=== PATIENT | female | born 1955 | race Caucasian/White ===

== ENCOUNTER 2016-09-03 09:49 | Emergency (ER) | payer OTHER ==
[~2016-09-03] VITALS: Ht 152.4 cm; Wt 76.4 kg
[~2016-09-03 09:49] MED LIST: ALBU8.5H4 IH; BACL10TA PO; CIPR-198 PO; DULO30CA50 PO; HYDR-4003 PO; HYDR50TA76 PO; INDO25CA PO; METO25TA6 PO; METR500T PO; SALM50DI IH; SIMV10TA4 PO; TIOT18CA3 IH
[2016-09-03 09:53] VITALS: BP 161/92; PULSE 74; RESP 16; O2SAT 95
[2016-09-03] MEDS ORDERED: Promethazine Inj 25 MG in 0.9% Sodium Chloride 50 ML IV ONE (10:30)
--- NOTE | 2016-09-03 10:37 | ED.REPORT ---
HPI-Abd Pain F 40 and Over Date of Service Sep 03, 2016 ED Provider: Gerardo Kenny PA-C Dang is a 60-year-old female who presents with a chief complaint of possible UTI. Patient states she has had urinary tract symptoms such as dysuria, odor, frequency, sensation of urinary retention, right flank pain for approximately 3 weeks. Reports a fever of 100F at home. She has been seen by her primary care provider and others, prescribed several antibiotics. She states that the symptoms went away for a couple days but have returned this morning. She has a states it seems like "I only pee on the right side," clarifying that seems that the urine comes out of her urethra to the right side. Patient has a history of back pain and an implanted stimulator in the left lumbar spine which was placed approximately one year ago. Patient states that she has numbness in her legs that is chronic for her and at baseline. Denies IV drug use, diabetes. Denies saddle anesthesia. Nursing Notes Stated Complaint: POSS UTI/KIDNEY INFECTION Chief Complaint: Female Abdominal Pain Nursing Notes Reviewed: Yes Allergies: Coded Allergies: Contrast Media (Verified Allergy, Severe, HIVES, RESP DISTRESS, 09/03/16) Iodinated Contrast Media - Oral and (Verified Allergy, Severe, Chest Burning, Blisters, 09/03/16) Severe reaction even after pre-treatment. red dye (Verified Allergy, Severe, Anaphylaxis, 09/03/16) Contrast IV dye, not food dye colestipol (Verified Allergy, Unknown, Nausea, 09/03/16) Scheduled Baclofen (Baclofen) 10 Mg Tablet 10 MG PO 000 Cephalexin (Cephalexin) 500 Mg Capsule 500 MG PO QID Ciprofloxacin (Ciprofloxacin) 500 Mg Tablet 500 MG PO BID Duloxetine (Duloxetine) 30 Mg Capsule.dr 30 MG PO DAILY Indomethacin (Indomethacin) 25 Mg Capsule 25 MG PO 000 Metoprolol Tartrate (Metoprolol Tartrate) 25 Mg Tablet 12.5 MG PO 0000 Metronidazole (Flagyl) 500 Mg Tablet 500 MG PO Q8H Simvastatin (Simvastatin) 10 Mg Tablet 10 MG PO HS Tiotropium [place] (Spiriva) 18 Mcg Cap.w.dev 18 MCG IH DAILY Scheduled PRN Albuterol HFA (Albuterol HFA) 8.5 Gm Hfa.aer.ad 1-2 PUFF IH Q 4-6HRS PRN PRN PRN DYSPNEA Hydrocodone-Acetaminophen 5-325 mg (Hydrocodone-Acetaminophen 5-325 mg) 1 Each Tablet 1 TABLET PO Q4H PRN PRN For Pain Hydroxyzine HCl (HydrOXYzine Hcl) 50 Mg Tablet 50 MG PO 000 PRN PRN For Itching Miscellaneous Medications Salmeterol Xinafoate (Serevent Diskus) 50 Mcg/Puff Inhaler 1,400 MCG IH General Time Seen by MD: 10:13 Chief Complaint Abdominal pain Sudden in Onset?: No Past Medical History Past Medical History [place] Reports: COPD, Coronary artery disease, GERD, Hypertension Past Surgical History svt ablation 08/2010 hernia repair, colectomy, nerve stimulator Reports: Cholecystectomy Smoking History Former Smoker Social History Other Social History: Good social support, Ambulatory Status Independent Review of Systems General: Admits low fever. Denies chills, malaise. HEENT: Denies congestion, headache, sore throat. Respiratory: Denies dyspnea, cough, shortness of breath, wheezing. Cardiovascular: Denies chest pain, palpitations. Gastrointestinal: Admits abdominal pain, vomiting. Denies diarrhea. Genitourinary: Admits frequency, urgency, dysuria, denies hematuria. Otherwise as noted in HPI. Physical Exam General: Well appearing, well developed, well nourished, no acute distress. Head: Atraumatic, normocephalic. Eyes: No scleral icterus or injection. No discharge. Vision grossly intact. ENT: Voice clear, hearing grossly intact. Respiratory: Regular rate and rhythm. Breath sounds present, clear to auscultation and equal bilaterally. Cardiovascular: Regular rate and rhythm, without murmur, gallop or rub. No pedal edema. Gastrointestinal: Obese abdomen globally tender with guarding but without rebound. Bowel sounds normoactive. Skin: Warm and dry. Back: 3, 3 cm scars left lumbar region. Tenderness over mid lumbar spine, left lumbar, CVA bilaterally. Neurological: Hip flexion, knee extension, ankle dorsiflexion and plantarflexion strength 5/5 B/L. Patellar and Achilles reflexes present and equal B/L. Sensation to sharp touch intact at medial leg, dorsal foot and lateral foot B/L. negative seated straight leg raise, negative seated cross straight leg raise. Normal rectal tone. : Urethra tender but normal to inspection, no discharge or odor. Psychological: Alert and oriented. Speech appropriate, linear and logical. Behavior appropriate. Vital Signs Initial VS: Reviewed, Vital signs normal Interpretation & Diagnostics Interpretation & Diagnostics: Postvoid bladder scan: 60 mL. Lab Results Interpretation Test 09/03/16 10:00 09/03/16 10:49 09/03/16 11:00 Hold Urine Received (Received) White Blood Count 7.6th/mm3 (3.8-10.1) Red Blood Count 4.99mil/mm3 (3.90-5.20) Hemoglobin 14.5g/dL (12.0-15.6) Hematocrit 43.4% (35.0-46.0) Mean Corpuscular Volume 87.0fL (81-100) Mean Corpuscular Hemoglobin 29.1pg (27.0-35.0) Mean Corpuscular Hemoglobin Concent 33.4% (32.0-37.0) Red Cell Distribution Width 13.0% (12.3-15.4) Platelet Count 227bil/L (150-400) Neutrophils (%) (Auto) 63.4% (40-74) Lymphocytes (%) (Auto) 26.8% (14-46) Monocytes (%) (Auto) 8.5% (4-12) Eosinophils (%) (Auto) 0.5% (0-5) Basophils (%) (Auto) 0.7% (0-3) Erythrocyte Sedimentation Rate 7mm/hr (0-40) Sodium Level 138mEq/L (134-144) Potassium Level 4.7mEq/L (3.5-5.2) Chloride Level 100mEq/L (97-108) Carbon Dioxide Level 27mmol/L (18-29) Blood Urea Nitrogen 20mg/dL (8-27) Creatinine 0.76mg/dL (0.57-1.00) Estimat Glomerular Filtration Rate 111mL/min (>59) Glucose Level 131mg/dL (60-99) Calcium Level 9.3mg/dL (8.5-10.1) Total Bilirubin 0.3mg/dL (0.0-1.2) Aspartate Amino Transf (AST/SGOT) 33U/L (0-50) Alanine Aminotransferase (ALT/SGPT) 24U/L (0-32) Alkaline Phosphatase 51U/L (25-165) Total Protein 6.8g/dL (6.4-8.4) Albumin 3.8g/dL (3.4-5.0) Lipase 30U/L (13-60) Lactic Acid Level 0.9mmol/L (0.4-2.0) Urinalysis Interpretation Urinalys reviewed and NL Re-Eval/Medical Decision Med Decision/Clinical Course 60-year-old female history of chronic back pain and implanted stimulator device one year ago, presents with 3 week history of dysuria, foul odor, CVA tenderness. She reports onset of urinary retention sensation 2 days ago. Admits low-grade fever of 100 at home. Also admits numbness in her legs which she says is at baseline. Denies saddle anesthesia. Concerning for cauda equina syndrome. Ordered CBC, CMP, lipase, sedimentation rate, bladder scan. Distal neurological examination normal, normal sphincter tone, postvoid bladder scan 60 mL. Confident that this is not cauda equina syndrome or epidural abscess. Urinalysis shows only slight leukocytes but the patient describes symptoms highly consistent with urinary tract infection with possible pyelonephritis. Review of old records reveals that her previous infections have been resistant to levofloxacin which she just finished a course of. Decided to trial Keflex and send urine for culture. Patient does not have intractable vomiting, severe pain, comorbidities and stable vital signs. She is safe to discharge to home. Counseled primary care follow-up in 3 days, over- the-counter analgesia and return precautions Discharge & Departure Primary Impression: Urinary tract infection Urinary tract infection type: site unspecified Hematuria presence: without hematuria Qualified Code: N39.0 - Urinary tract infection, site not specified Disposition: Home Discharge Condition All VS Reviewed: Yes Condition: Stable Patient Instructions: Urinary Tract Infection in Women (ED) Additional Instructions: Evaluation for urinary symptoms in the ED. I believe we have ruled out dangerous causes of back pain and sensation of urinary retention. Labs and examination are reassuring this is not caused by swelling or infection in the spine. There is no blood in your urine, making kidney stones highly unlikely. While urinalysis was equivocal regarding the possibility of a urinary tract infection, your symptoms are highly suggestive and I feel it is reasonable to treat with antibiotics. Review her records indicates that he has had infections in the past that were resistant to the medications you have told us that you have taken. We will try an antibiotic that that bacteria was susceptible to. Please take the Keflex 4 times a day for 10 days. The pain is best treated with 400 mg of ibuprofen (Advil, Motrin) every 6 hours, or 1000 mg of acetaminophen (Tylenol) every 6 hours. These drugs can be taken at the same time for more severe pain. Continue taking the Pyridium that you have already been prescribed. Follow up with your primary care provider in a few days to make sure recovery is progressing as expected. Return emergency Department for any new or worsening symptoms including loss of bowel/bladder control, numbness or tingling between your legs, severe pain in your back. Referrals: [facility] Provider for APC: Jorge L Torres Seth PA-C Sep 03, 2016 10:37 time for more severe pain. Continue taking the Pyridium that you have already been prescribed. Follow up with your primary care provider in a few days to make sure recovery is progressing as expected. Return emergency Department for any new or worsening symptoms including loss of bowel/bladder control, numbness or tingling between your legs, severe pain in your back. Referrals: OTHER,PHYSICIAN [facility] [place] E[facility]upervising Provider for APC: Jorge L Torres Seth PA-C Sep 03, 2016 10:37
[2016-09-03 11:11] LABS: BASOPHILS % (AUTO) 0.7 % (0-3); EOSINOPHILS % (AUTO) 0.5 % (0-5); MONOCYTES % (AUTO) 8.5 % (4-12); Mean Corpuscular Hemoglobin 29.1 pg (27.0-35.0); NEUTROPHILS % (AUTO) 63.4 % (40-74); Platelet Count 227 bil/L (150-400)
[2016-09-03 11:51] LABS: ERYTHROCYTE SEDIMENTATION RATE 7 mm/hr (0-40)
[2016-09-03] MEDS: HYDROcodone-APAP 5-325 mg Tablet PO ONE ×2 (12:13→12:30)
[2016-09-03 13:56] VITALS: BP_SYST 121; BP_SYST 136; BP_DIAS 75; BP_DIAS 83; PULSE 107; PULSE 64; RESP 20; O2SAT 96
[2016-09-03] MEDS ORDERED: CEPH500C PO (14:34)
[2016-09-03 14:51] VITALS: BP 136/83; PULSE 64; RESP 20; O2SAT 96
== END 2016-09-03 14:33 | disposition home or self-care (01) ==
LOC: SED 09:49
DX: N39.0 Urinary tract infection, site not specified (principal); I25.2 Old myocardial infarction; J44.9 Chronic obstructive pulmonary disease, unspecified; I25.10 Atherosclerotic heart disease of native coronary artery without angina pectoris; K21.9 Gastro-esophageal reflux disease without esophagitis; I10 Essential (primary) hypertension; Z96.89 Presence of other specified functional implants; Z87.891 Personal history of nicotine dependence; Z91.041 Radiographic dye allergy status; Z88.8 Allergy status to other drugs, medicaments and biological substances

== ENCOUNTER 2016-11-21 13:48 | Emergency (ER) | payer OTHER ==
[~2016-11-21] VITALS: Ht 157.5 cm; Wt 73.2 kg
[~2016-11-21 13:48] MED LIST changes: +CEPH500C PO
[2016-11-21 13:54] VITALS: BP 163/88; PULSE 69; RESP 16; O2SAT 99
[2016-11-21] MEDS ORDERED: ONDA4TAB6 PO (14:08)
[2016-11-21] MEDS ORDERED: [UNRECOGNIZED DRUG - CODE] PO (14:08)
[2016-11-21] MEDS ORDERED: ALBU8.5H2 INHALATION (14:08)
[2016-11-21] MEDS ORDERED: TRAM50TA2 PO (14:08)
[2016-11-21] MEDS ORDERED: OMEP20TA86 PO (14:08)
[2016-11-21] MEDS ORDERED: LIDO5CRE17 TOPICAL (14:08)
[2016-11-21] MEDS ORDERED: 0.9% Sodium Chloride 1,000 ML IV ONE (15:31)
[2016-11-21 15:33] LABS: APPEARANCE,URINE HAZY (CLEAR,HAZY); COLOR,URINE YELLOW (YELLOW); OCCULT BLOOD,URINE NEGATIVE (NEGATIVE); PH,URINE 5.5 (5.0-8.0); UROBILINOGEN,URINE NORMAL (NORMAL)
[2016-11-21 15:35] LABS: BASOPHILS % (AUTO) 0.8 % (0-3); EOSINOPHILS % (AUTO) 2.1 % (0-5); MONOCYTES % (AUTO) 6.2 % (4-12); Mean Corpuscular Hemoglobin 28.4 pg (27.0-35.0); Mean Corpuscular Volume 86.2 fL (81-100); NEUTROPHILS % (AUTO) 59.2 % (40-74); Platelet Count 241 bil/L (150-400)
[2016-11-21] MEDS ORDERED: Ondansetron 2 mg/mL 2 mL Inj IVPUSH ONE (15:35)
--- NOTE | 2016-11-21 15:46 | ED.REPORT ---
HPI-Abd Pain F 40 and Over Date of Service Nov 21, 2016 ED Provider: Gerardo Kenny PA-C Dang is a 61-year-old female with a history of COPD, cholecystectomy, diverticulitis and colectomy who presents with complaints of vaginal pain as well as left-sided abdominal pain. She reports the onset of dysuria one week ago for which she saw her PCP and was prescribed Keflex. The UTI symptoms have abated, though she still has frequency. She complains of pain in her vagina, described as "dull and sharp" that radiates to her left leg. Denies itching, burning, bleeding or discharge. She also complains of abdominal pain the left side of her abdomen. The pain began suddenly this morning when awoken from sleep at 3 AM. She states this is the site of her colectomy performed in 2009. She describes her left lower quadrant pain is constant and radiating across her lower abdomen. She reports one episode of vomiting this morning, yellow without blood. She reports 3 episodes of diarrhea yesterday described as loosely formed stools without blood. Patient states that her vaginal pain began same time. Nursing Notes Stated Complaint: FEMALE PROBLEMS,LEFT STOMACH PAIN Chief Complaint: Female Abdominal Pain Nursing Notes Reviewed: Yes Allergies: Coded Allergies: Contrast Media (Verified Allergy, Severe, HIVES, RESP DISTRESS, 11/21/16) Iodinated Contrast Media - Oral and (Verified Allergy, Severe, Chest Burning, Blisters, 11/21/16) Severe reaction even after pre-treatment. red dye (Verified Allergy, Severe, Anaphylaxis, 11/21/16) Contrast IV dye, not food dye colestipol (Verified Allergy, Unknown, Nausea, 11/21/16) Scheduled Albuterol HFA (Proair HFA) 8.5 Gm Hfa.aer.ad 2 PUFFS INHALATION Q4H Amoxicillin/Clav K 875-125 mg (Augmentin 875-125 mg) 1 Each Tablet 1 TABLET PO BID Baclofen (Baclofen) 10 Mg Tablet 10 MG PO BID Cephalexin (Cephalexin) 500 Mg Capsule 500 MG PO QID Hydroxyzine HCl (HydrOXYzine Hcl) 50 Mg Tablet 50 MG PO BID Indomethacin (Indomethacin) 25 Mg Capsule 25 MG PO BID Lactobacillus Acidophilus (Probiotic) 1 Each Capsule 1 EACH PO DAILY Lidocaine Cream (Lidocaine Cream) 5 Gm Cream..g. 1 APPLIC TOPICAL QID Metoprolol Tartrate (Metoprolol Tartrate) 25 Mg Tablet 25 MG PO QID Omeprazole (Omeprazole) 20 Mg Tablet.dr 20 MG PO BID Psyllium Husk/Aspartame (Fiber Therapy Powder) 3.4 Gram/5.8 Gram Powder 660 GM PO DAILY Simvastatin (Simvastatin) 10 Mg Tablet 10 MG PO HS Tramadol (Tramadol) 50 Mg Tablet 50 MG PO Q6H Scheduled PRN Hydrocodone-Acetaminophen 5-325 mg (Hydrocodone-Acetaminophen 5-325 mg) 1 Each Tablet 1 TABLET PO Q6H PRN PRN For Pain Ondansetron (Zofran) 4 Mg Tablet 4 MG PO Q4H PRN PRN For Nausea General Time Seen by MD: 15:07 Chief Complaint Abdominal pain Sudden in Onset?: Yes Past Medical History Past Medical History [place] Reports: COPD, Coronary artery disease, GERD, Hypertension Past Surgical History svt ablation 08/2010 hernia repair, colectomy, nerve stimulator Reports: Cholecystectomy Smoking History Former Smoker Social History Other Social History: Good social support, Ambulatory Status Independent Review of Systems General: Denies fever, chills, malaise. HEENT: Denies congestion, headache, sore throat. Respiratory: Denies dyspnea, cough, shortness of breath, wheezing. Cardiovascular: Denies chest pain, palpitations. Gastrointestinal: Admits vomiting, diarrhea, abdominal pain. Genitourinary: Admits frequency, denies urgency, dysuria, hematuria. Otherwise as noted in HPI. Physical Exam General: Well appearing, well developed, well nourished, no acute distress. Head: Atraumatic, normocephalic. Eyes: No scleral icterus or injection. No discharge. Vision grossly intact. ENT: Voice clear, hearing grossly intact. Respiratory: Regular rate and rhythm. Breath sounds present, clear to auscultation and equal bilaterally. No respiratory distress. No increased work of breathing, speaks in complete sentences. Cardiovascular: Regular rate and rhythm, without murmur, gallop or rub. No pedal edema. DP pulses 2+ bilaterally Gastrointestinal: Abdomen flat and moderately tender in left lower quadrant without guarding or rebound. Mildly tender in the right lower and left upper quadrants without guarding or rebound. Bowel sounds normoactive. Skin: Warm and dry. : Normal external genitalia no lesions or discharge noted. Rectal exam reveals normal cervix without erythema, discharge, lesion. Tenderness in the vaginal canal noted on bimanual exam. Questionable cervical motion tenderness, which may be confounded by vaginal tenderness. Adnexa not appreciated. Left hip: Nontender for range of motion. Left leg: The areas of tenderness on anterior proximal thigh, posterior distal thigh. No redness, swelling, heat. Left knee: Nontender for range of motion. Neurological: Grossly nonfocal. Psychological: Alert and oriented. Speech appropriate, linear and logical. Behavior appropriate. Vital Signs Vital Signs (First) Date Time Temp Pulse Resp B/P Pulse Ox O2 Delivery O2 Flow Rate FiO2 11/21/16 13:54 36.2 69 16 163/88 99 Room Air Initial VS: Reviewed, Vital signs normal Interpretation & Diagnostics Lab Results Interpretation Result Diagram: 11/21/16 1525 11/21/16 1525 Test 11/21/16 15:03 11/21/16 15:25 Urine Color Yellow (YELLOW) Urine Appearance Hazy (CLEAR,HAZY) Urine pH 5.5 (5.0-8.0) Urine Specific [place] 1.025 (1.003-1.035) Urine Protein Negativemg/dL (NEG,TRACE) Urine Glucose (UA) Negativemg/dL (NEGATIVE) Urine Ketones Tracemg/dL (NEGATIVE) Urine Occult Blood Negative (NEGATIVE) Urine Nitrite Negative (NEGATIVE) Urine Bilirubin Negative (NEGATIVE) Urine Urobilinogen Normalmg/dL (NORMAL) Urine Leukocyte Esterase Negative (NEGATIVE) Urine RBC 0-2/hpf (0-2) Urine WBC 0-5/hpf (0-5) Urine Epithelial Cells Many/hpf (NONE-MOD) Urine Crystals None seen (NONE SEEN) Urine Bacteria Few/hpf (NONE-FEW) Urine Hyaline Casts None/lpf (NONE) Urine Granular Casts None seen (NONE SEEN) Urine Waxy Casts None seen (NONE SEEN) Urine Red Blood Cell Casts None seen (NONE SEEN) Urine White Blood Cell Casts None seen (NONE SEEN) Urine Mucus Present (None Seen) Urine Trichomonas None seen (NONE SEEN) Urine Yeast None (NONE SEEN) Urinalysis Comment None Urine Culture Reflexed Not indicated White Blood Count 7.8th/mm3 (3.8-10.1) Red Blood Count 5.21mil/mm3 (3.90-5.20) Hemoglobin 14.8g/dL (12.0-15.6) Hematocrit 44.9% (35.0-46.0) Mean Corpuscular Volume 86.2fL (81-100) Mean Corpuscular Hemoglobin 28.4pg (27.0-35.0) Mean Corpuscular Hemoglobin Concent 33.0% (32.0-37.0) Red Cell Distribution Width 13.1% (12.3-15.4) Platelet Count 241bil/L (150-400) Neutrophils (%) (Auto) 59.2% (40-74) Lymphocytes (%) (Auto) 31.6% (14-46) Monocytes (%) (Auto) 6.2% (4-12) Eosinophils (%) (Auto) 2.1% (0-5) Basophils (%) (Auto) 0.8% (0-3) Sodium Level 141mEq/L (134-144) Potassium Level 4.4mEq/L (3.5-5.2) Chloride Level 103mEq/L (97-108) Carbon Dioxide Level 22mmol/L (18-29) Blood Urea Nitrogen 16mg/dL (8-27) Creatinine 0.68mg/dL (0.57-1.00) Estimat Glomerular Filtration Rate 126mL/min (>59) Glucose Level 96mg/dL (60-99) Calcium Level 9.9mg/dL (8.5-10.1) Magnesium Level 2.2mg/dL (1.6-2.6) Total Bilirubin 0.4mg/dL (0.0-1.2) Aspartate Amino Transf (AST/SGOT) 29U/L (0-50) Alanine Aminotransferase (ALT/SGPT) 19U/L (0-32) Alkaline Phosphatase 60U/L (25-165) Total Protein 7.4g/dL (6.4-8.4) Albumin 4.3g/dL (3.4-5.0) Lipase 46U/L (13-60) Hold Tam Top Tube Received (Received) CT Abd / Pelvis Interpretation PROCEDURE: CT ABDOMEN AND PELVIS WITHOUT CONTRAST ([id number]) INDICATIONS: left lower quadrant pain IMPRESSION: 1. No explanation for left lower quadrant abdominal pain. 2. No evidence of urinary tract calcification, nor obstruction. Discharge & Departure Primary Impression: Abdominal pain Abdominal location: left lower quadrant Qualified Code: R10.32 - Left lower quadrant pain Additional Impression: Diverticulitis Diverticulitis site: unspecified part of intestinal tract Diverticulitis bleeding: without bleeding Diverticulitis complication: without perforation or abscess Qualified Code: K57.92 - Diverticulitis of intestine, part unspecified, without perforation or abscess without bleeding Disposition: Home Additional Instructions: 1. Although your blood tests and CT scan in the emergency department were did not reveal any definitive cause of your pain, ear symptoms and exam are highly suspicious for early diverticulitis. It is therefore reasonable to treat empirically with antibiotics. 2. Take the antibiotic Augmentin (amoxicillin/clavulanic acid) 875 mg twice a day for 10 days. 3. If needed for pain take hydrocodone/APAP 5/325 1-2 tabs up to every 6 hours. Note this medicine does contain a narcotic and can cause drowsiness. No driving for at least 4 hours after taking. 4. Take nausea medicine that he have his home if needed for nausea. 5. I do recommend taking a probiotic daily and continuing for another 1-2 weeks after finishing all the antibiotics. 6. Symptoms are expected to improve, but he usually takes a couple of days of antibiotics before improvement is actually seen. If you have new, worsening symptoms-fever, worsening pain-return to the emergency department. 7. Keep the appointment with your hospitality ambassador. 8. You should also follow up with a primary care provider. If you do not have one, follow up with Dr. Matt Kulkarni. Call for an appointment and tell them you were referred from the ED. Referrals: Matt Kulkarni MD EDSupervising Provider for APC: Andrew Washington MD Attending Statement This patient was seen and evaluated by mid-level provider, but then I personally interviewed and examined the patient. The patient presents With left lower quadrant pain and some mild tenderness-also has some diarrhea. To start today and worsened. She tells me it is reminiscent of diverticulitis she has had previously. She reports her appetite is down-is been no fever, nausea or vomiting. She does have tenderness in the left lower quadrant-without findings of peritonitis or surgical abdomen. Pelvic exam was performed by the mid-level and was not repeated. Blood work was normal. CT abdomen and pelvis did not reveal overt findings of diverticulitis, but on discussing options with patient she would like to pursue empiric treatment, which I think is reasonable. Patient is being treated with a course of Augmentin. Some when necessary hydrocodone was provided, the patient has nausea medicine at home. Return precautions reveiwed. copies to: Matt Kulkarni MD, Seth PA-C Nov 21, 2016 15:46 Andrew Washington MD Nov 21, 2016 19:33
[2016-11-21 16:01] LABS: Magnesium 2.2 mg/dL (1.6-2.6)
[2016-11-21 16:30] VITALS: BP 140/77; PULSE 87; RESP 18; O2SAT 100
[2016-11-21] MEDS ORDERED: hydrOXYzine Pamoate 25 mg Capsule PO ONE (16:40)
--- NOTE | 2016-11-21 17:51 | DRSVH ---
PROCEDURE: CT ABDOMEN AND PELVIS WITHOUT CONTRAST ([id number]) INDICATIONS: left lower quadrant pain TECHNIQUE: After the administration of oral contrast, 5 mm thick sections acquired from the diaphragms to the sy mphysis. 5 mm coronal and sagittal reformats were performed. For radiation dose reduction, the foll owing was used: automated exposure control, adjustment of mA and/or kV according to patient size. COMPARISON: [facility], CT, CT ABD PELVIS WO CON, 06/18/2016, 12:33. [facility], CT, CT ABD PELVIS WO CON, 01/24/2016, 13:34. [facility], CT, ABD/PELVIS W/O CON (PN L), 01/31/2014, 12:18. FINDINGS: Image quality: Excellent. ABDOMEN: Lung bases: Lung bases are clear. Heart size is normal. Solid organs: Liver and spleen are normal in size. Gallbladder is surgically absent. Pancreas is n ormal in size. No adrenal nodules. Both kidneys are normal in size, without hydronephrosis or nephr olithiasis. Peritoneum and bowel: Bowel loops demonstrate normal wall thickness and caliber. Diverticulosis of the descending and sigmoid colon is present. No evidence of acute diverticulitis. No free fluid or ai r. Nodes and vessels: No retroperitoneal or mesenteric adenopathy by size criteria. Aorta and inferior vena cava are normal in size. Miscellaneous: No ventral hernias. PELVIS: Genitourinary: Urinary bladder is decompressed. Miscellaneous: No inguinal hernias or adenopathy. Bones: No suspicious bony lesions. No vertebral body compression fractures. IMPRESSION: 1. No explanation for left lower quadrant abdominal pain. 2. No evidence of urinary tract calcification, nor obstruction. Dictated by: Michael Belle M.D. on 11/21/2016 at 17:48 Approved by: Michael Belle M.D. on 11/21/2016 at 17:50
[2016-11-21] MEDS ORDERED: HYDR-4003 PO (19:17)
[2016-11-21] MEDS ORDERED: AMOX-366 PO (19:17)
[2016-11-21] MEDS ORDERED: LACT1CAP65 PO (19:17)
[2016-11-21] MEDS ORDERED: Amoxicillin-Clav 875-125 mg Tablet PO ONE (19:25)
[2016-11-21 20:14] VITALS: BP 103/67; PULSE 78; RESP 20; O2SAT 97
== END 2016-11-21 20:14 | disposition home or self-care (01) ==
LOC: SED 13:48
DX: K57.92 Diverticulitis of intestine, part unspecified, without perforation or abscess without bleeding (principal); J44.9 Chronic obstructive pulmonary disease, unspecified; I25.2 Old myocardial infarction; I25.10 Atherosclerotic heart disease of native coronary artery without angina pectoris; K21.9 Gastro-esophageal reflux disease without esophagitis; I10 Essential (primary) hypertension; Z90.49 Acquired absence of other specified parts of digestive tract; Z87.19 Personal history of other diseases of the digestive system; Z87.891 Personal history of nicotine dependence; Z91.041 Radiographic dye allergy status; Z88.8 Allergy status to other drugs, medicaments and biological substances
CPT/HCPCS: 36415; 74176; 80053; 81000; 83690; 83735; 85025; 96361; 96374; 96375; 96376; 99285; J2270; J2405; J7030; Q0177; Q9967